=== PATIENT | male | born 1975 | race Caucasian/White ===

== ENCOUNTER 2018-09-10 09:58 | Day surgery (SDC) | payer OTHER ==
[2018-09-05 13:49] VITALS: BMI 44.1
[2018-09-10 10:29] LABS: BASO # 0.08 K/mm3 (0.0-2.0); BASO % 0.7 % (0.0-3.0); EOS # 0.2 (0.0-0.7); EOS % 1.8 % (1.5-5.0); GRAN # 6.12 (1.4-6.5); GRAN % 54.7 % (50.0-68.0); HEMOGLOBIN 14.6 g/dL (14.0-18.0); LYMPH # 4.2 (1.2-3.4); LYMPH % 37.5 % (22.0-35.0); MEAN CELL VOLUME 83.2 fl (80.0-105.0); MEAN CORPUSCULAR HEMOGLOBIN 28.1 pg (25.0-35.0); MEAN CORPUSCULAR HGB CONC 33.8 g/dl (31.0-37.0); MEAN PLATELET VOLUME 8.7 fl (7.0-11.0); MONO # 0.6 (0.1-0.6); MONO % 5.3 % (1.0-6.0); RBC 5.19 10^6/uL (3.5-6.1); RED CELL DISTRIBUTION WIDTH 13.5 % (11.5-14.5); WHITE BLOOD COUNT 11.2 10^3/uL (4.5-11.0)
[2018-09-10 10:39] LABS: BLOOD UREA NITROGEN 9 mg/dL (7-21); CALCIUM 9.7 mg/dL (8.4-10.5); GFR NON-AFRICAN AMERICAN > 60
[2018-09-10 10:44] LABS: INR 1.07; PARTIAL THROMBOPLASTIN TIME 31.7 Seconds (25.1-36.5); PROTHROMBIN TIME 12.3 SECONDS (9.4-12.5)
[2018-09-10] MEDS ORDERED: Lidocaine 1% Inj (20ml) ONE (12:12)
[2018-09-10] MEDS ORDERED: Midazolam 2 MG/2 ML VIAL ONE (12:12)
[2018-09-10] MEDS ORDERED: Midazolam 2 MG/2 ML VIAL IVP ONE (13:15)
[2018-09-10] MEDS ORDERED: Oxycodone/Acetaminophen 5/325 mg Tab PO PRN (13:32)
[2018-09-10] MEDS ORDERED: Sodium Chloride 0.45% 1,000 ML IV SCH (13:45)
[2018-09-10] MEDS ORDERED: Oxycodone/Acetaminophen 5/325 mg Tab ONE (14:23)
[2018-09-10 14:29] VITALS: RESP 18; TEMP 98.5; O2SAT 97
[2018-09-10 15:04] VITALS: BP 129/80; PULSE 74
--- NOTE | 2018-09-10 19:08 | CT ---
PROCEDURE: CT guided right pelvic lymph node biopsy. HISTORY: Lymphoma. Residual retroperitoneal and pelvic lymphadenopathy. Evaluate for persistent disease. PHYSICIAN(S): Bunny Sanford MD. TECHNIQUE: The relative risks and indications of the procedure were explained to the patient and consent obtained. The patient was placed supine on the CT scanner and preliminary images through the pelvis obtained. Conscious sedation and monitoring were provided throughout the procedure by a nurse. There is a 3.2 cm oblong lymph node in the right pelvis posterior to the external iliac vessels.. A right anterior approach was selected and the area prepped and draped in the usual sterile fashion. 1% Xylocaine was used to anesthetize the skin and soft tissues. A 17-gauge guiding needle was advanced into the 3.2 cm right external iliac lymph nodes.. Its position was confirmed with CT. Using coaxial technique, multiple core biopsies were obtained. The postprocedure images show no evidence of significant hemorrhage. IMPRESSION: 1. CT-guided right external iliac lymph node biopsy as described above. Specimens were sent for histology and flow cytometry
== END 2018-09-10 15:15 | disposition home or self-care (01) ==
LOC: SDS 09:58
PROVIDERS: ATTEND Radiology Vascular & Interventional Radiology
DX: R59.0 Localized enlarged lymph nodes (principal); J45.909 Unspecified asthma, uncomplicated
CPT/HCPCS: 36415; 49180; 77012; 80048; 85025; 85610; 85730; 88305; J2250; J2405; J3010; J7030